=== PATIENT | male | born 1985 | race Caucasian/White ===

== ENCOUNTER 2017-06-15 05:51 | Day surgery (SDC) | payer OTHER ==
[2017-06-15] VITALS (9 sets, daily range): BP systolic 90–126; BP diastolic 50–65; PULSE 50–69; RESP 10–31; Ht 172.7 cm; Wt 65.7 kg
[~2017-06-15] VITALS: Ht 172.7 cm; Wt 65.7 kg
[2017-06-15] MEDS ORDERED: SERT50TA PO (07:13)
[2017-06-15] MEDS ORDERED: CEFAZOLIN 1 GM/50 ML (PMX) 50 ML IVPB SCH (08:00)
[2017-06-15] MEDS ORDERED: SOD CHLORIDE 0.9% 1,000 ML IV SCH (08:00)
[2017-06-15] MEDS ORDERED: MIDAZOLAM 1 MG/ML 2 ML INJ ONE (08:25)
[2017-06-15] MEDS ORDERED: FENTAnyl 50 MCG/ML VIAL ONE (08:25)
[2017-06-15] MEDS ORDERED: CEFAZOLIN 1 GM INJ ONE ×2 (08:25→09:12)
[2017-06-15] MEDS ORDERED: PROPOFOL 20 ML ONE (08:25)
[2017-06-15] MEDS ORDERED: hydrALAzine 20 MG INJ IV PRN (08:30)
[2017-06-15] MEDS ORDERED: EPHEDrine SULFATE 50 MG/5 ML SYG IV PRN (08:30)
[2017-06-15] MEDS ORDERED: HYDROmorphONE (0.2 MG/ML) 10ML SYG IV PRN ×2 (08:30)
[2017-06-15] MEDS ORDERED: DIPHENHYDRAMINE 50 MG INJ IV PRN (08:30)
[2017-06-15] MEDS ORDERED: MEPERIDINE 25 MG INJ IV PRN (08:30)
[2017-06-15] MEDS ORDERED: FENTAnyl 50 MCG/ML VIAL IV PRN ×3 (08:30)
[2017-06-15] MEDS ORDERED: ONDANSETRON 4 MG INJ IV PRN (08:30)
[2017-06-15] MEDS ORDERED: OXYCODONE/ACETAMINOPHEN (5/325) TAB PO PRN ×2 (08:30)
[2017-06-15] MEDS ORDERED: morphine (1 MG/ML) 10ML SYRINGE IV PRN ×3 (08:30)
[2017-06-15] MEDS ORDERED: METOCLOPRAMIDE 10 MG INJ IV PRN (08:30)
[2017-06-15] MEDS ORDERED: BUPIVACAINE 0.25% (MPF) 30 ML INJ ONE (08:42)
[2017-06-15] MEDS ORDERED: METOCLOPRAMIDE 10 MG INJ ONE (09:12)
[2017-06-15] MEDS ORDERED: DEXAMETHASONE 4 MG/ML 1 ML INJ ONE (09:12)
[2017-06-15] MEDS ORDERED: ONDANSETRON 4 MG INJ ONE (09:12)
[2017-06-15] MEDS ORDERED: KETOROLAC 30 MG INJ ONE (09:28)
[2017-06-15] MEDS ORDERED: HYDROCODONE/APAP (5/325) TAB PO ONE (09:30)
--- NOTE | 2017-06-15 09:32 | OPR ---
Date/Time of Note Date/Time of Note DATE: 06/15/17 TIME: 09:28 Operative Report Procedure Date: Jun 15, 2017 Preoperative Diagnosis right neck mass Postoperative Diagnosis right neck mass Operation Performed 1. excision of right neck mass 4 cm incision and 3 cm mass 2. localized adjacent tissue transfer with the use of skin flaps 8 sq cm defect 3. therapeutic injection of subcutaneous marcaine cpt code 32702 Surgeon: Pura CONCEPCION Anesthesia Type: general Estimated Blood Loss: 0 - 10 ml's Specimens right neck mass Grafts/Implants: none Complications: no Indications This is a 32-year-old male with a right neck mass. He requires surgical excision. Risks alternatives benefits and percent were discussed the patient. Patient expressed understanding consents to the operation. Procedure Description Patient is taken to the OR and prepped and draped in usual sterile fashion. Surgical timeout was performed. IV antibiotics given. Right neck transverse incision is made over the mass with a 15 blade. Dissection cautery was carried onto the mass. The mass was circumferentially excised. Additionally some skin was taken along with the mass due to its close adhesions. The surgical site was hemostatic. Due to large tissue defect localized adjacent tissue transfer with use of skin flaps was performed for closure. Superior inferior skin flaps were advanced with interrupted 3-0 Vicryl. The skin was closed with skin vineet due to the fact the patient wanted to resume activities immediately. Therapeutic subcutaneous Marcaine was injected throughout the incision site. Dry dressings were applied. Pura CONCEPCION Jun 15, 2017 09:32
[2017-06-15] MEDS ORDERED: BUPIVACAINE 0.25% (MPF) 30 ML INJ INJ ONE (09:41)
== END 2017-06-15 11:20 | disposition home or self-care (01) ==
LOC: SDS 05:51
PROVIDERS: ATTEND Surgery
DX: L72.0 Epidermal cyst (principal)
CPT/HCPCS: 14040; 88307; J0690; J1100; J1885; J2250; J2405; J2765; J3010; Z7512; Z7610